=== PATIENT | female | born 1955 | race Caucasian/White ===

== ENCOUNTER 2022-03-04 23:04 | Inpatient (IN) | payer MEDICARE ==
[2022-03-05] MEDS ORDERED: Famotidine 20 MG TAB ONE (01:29)
[2022-03-05] MEDS ORDERED: Morphine 2 MG/ML VIAL SLOW IVP PRN (04:40)
[2022-03-05] MEDS ORDERED: Ondansetron PF 4 MG/2 ML Vial IVP PRN ×2 (04:41→15:40)
[2022-03-05] MEDS ORDERED: Ondansetron ORAL SOLN. 4 MG/5 ML UDCUP PO PRN (04:41)
[2022-03-05] MEDS: Cefepime 2 GM in Sodium Chloride 0.9% 100 ML IVPB SCH ×2 (07:00→18:07)
[2022-03-05] MEDS: metroNIDAZOLE 500 MG in Premix Bag 1 BAG IVPB SCH ×3 (07:00→21:13)
[2022-03-05] MEDS: Sodium Chloride 0.9% 1,000 ML IV SCH ×2 (07:00→14:34)
[2022-03-05 07:17] LABS: SARS-CoV-2 NAA Rapid Test Not Detected (NotDetected)
[2022-03-05] MEDS ORDERED: Iopamidol-370 76% 500 ML 1 ML ONE (11:18)
[2022-03-05] MEDS ORDERED: SUGAMMADEX SODIUM 200 MG/2 ML VIAL ONE (14:06)
[2022-03-05] MEDS ORDERED: fentaNYL Citrate/PF 100 MCG/2 ML SYRINGE ONE (14:06)
[2022-03-05] MEDS ORDERED: Famotidine/PF 20 mg/2ml Vial ONE (14:06)
[2022-03-05] MEDS ORDERED: Bupivacaine 0.25% HCL 30 ML VIAL ONE (14:07)
[2022-03-05] MEDS ORDERED: Lidocaine 1% w/Epinephrine 1:100K 20 ML VIAL ONE (14:07)
[2022-03-05] MEDS ORDERED: Iopamidol 15 ML ONE (14:07)
[2022-03-05] MEDS ORDERED: Levofloxacin 500 mg/D5W 100 ml Premix Bag ONE ×2 (14:15)
[2022-03-05] MEDS ORDERED: ePHEDrine 50 MG/ML VIAL ONE (14:20)
[2022-03-05] MEDS ORDERED: Dexamethasone 20 MG/5 ML VIAL ONE (14:20)
[2022-03-05] MEDS ORDERED: Lidocaine 1% PF 5 ML VIAL ONE (14:20)
[2022-03-05] MEDS ORDERED: Rocuronium Bromide 10 MG/ML (10ML VIAL) ONE (14:20)
[2022-03-05] MEDS ORDERED: Ketorolac Tromethamine 30 MG/ML VIAL ONE (14:20)
[2022-03-05] MEDS ORDERED: PROPOFOL 200 MG/20 ML VIAL ONE (14:20)
[2022-03-05] MEDS ORDERED: Metoclopramide HCl 10 MG/2 ML VIAL ONE (14:20)
[2022-03-05] MEDS ORDERED: Ondansetron PF 4 MG/2 ML Vial ONE (14:20)
[2022-03-05] MEDS ORDERED: Dextrose 5% in Water 1,000 ML IV PRN (15:40)
[2022-03-05] MEDS ORDERED: hydrALAZINE 20 MG/ML VIAL SLOW IVP PRN (15:40)
[2022-03-05] MEDS ORDERED: Dextrose 50% Abboject 50 ML SYRINGE SLOW IVP PRN (15:40)
[2022-03-05] MEDS ORDERED: Calcium Carbonate 500 MG ChewTAB PO PRN (15:40)
[2022-03-05] MEDS ORDERED: Mag-Al 1200 mg/1200 mg/30 ML UDCUP PO PRN (15:40)
[2022-03-05] MEDS ORDERED: Promethazine HCl 25 MG/ML VIAL IM PRN (15:40)
[2022-03-05] MEDS ORDERED: Fentanyl 100 MCG/2 ML VIAL ONE (15:55)
[2022-03-05] MEDS: Gabapentin 300 MG CAP PO SCH ×3 (15:58→20:13)
[2022-03-05] MEDS: Lactated Ringer's 1,000 ML IV SCH (17:05)
[2022-03-05] MEDS: Ketorolac Tromethamine 30 MG/ML VIAL IVP SCH (18:09)
[2022-03-05] MEDS: Famotidine 20 MG TAB PO SCH (20:09)
[2022-03-05] MEDS: Famotidine 40 MG/4 ML VIAL SLOW IVP SCH (20:10)
[2022-03-05] MEDS: Cyclobenzaprine 10 MG TAB PO PRN (21:25)
[2022-03-05 23:00] LABS: #Basophils 0.1 thou/uL (0.0-0.2); #Lymphocytes 0.5 thou/uL (1.20-3.40); #Monocytes 0.5 thou/uL (0.11-0.59); %Basophils 0.8 % (0.0-1.0); %Eosinophils 0.2 % (0.0-10.0); %Lymphocytes 4.2 % (21.0-51.0); %Neutrophils 90.8 % (42.0-75.0); Hemoglobin 9.2 g/dL (12.0-16.0); Mean Corpuscular HGB CONC 32.4 g/dL (32.0-36.0); Mean Corpuscular Hemoglobin 33.7 pg (27.0-31.0); Mean Platelet Volume 6.1 fL (7.4-10.4); Platelet Count 508 thou/uL (130-400); RBC Distribution Width 11.9 % (11.5-14.5); Red Blood Cell (RBC) Count 2.73 mill/uL (4.20-5.40); White Blood Cell (WBC) Count 12.1 thou/uL (4.8-10.8)
[2022-03-05 23:17] LABS: Lactic Acid 2.8 mmol/L (0.5-2.2)
[2022-03-05 23:22] LABS: ALT (SGPT) 200 U/L (8-55); AST (SGOT) 155 U/L (5-34); Albumin 3.1 g/dL (3.4-4.8); Alkaline Phosphatase 170 U/L (40-110); Anion Gap 16 mmol/L (10-20); BUN (Urea Nitrogen) 11 mg/dL (9.8-20.1); Bilirubin, Total 1.6 mg/dL (0.2-1.2); Calc. Creatinine Clearance 84 mL/min (70-130); Calcium 8.3 mg/dL (7.8-10.44); Carbon Dioxide 22 mmol/L (23-31); Chloride 104 mmol/L (98-107); Globulin 2.1 g/dL (2.4-3.5); Glucose 211 mg/dL (80-115); Potassium 3.5 mmol/L (3.5-5.1); Protein, Total 5.2 g/dL (5.8-8.1); Sodium 138 mmol/L (136-145)
[2022-03-06] MEDS ORDERED: fentaNYL Citrate/PF 100 MCG/2 ML SYRINGE ONE ×2 (00:11→02:32)
[2022-03-06] MEDS ORDERED: Lidocaine 1% w/Epinephrine 1:100K 20 ML VIAL ONE (00:28)
[2022-03-06] MEDS ORDERED: Bupivacaine 0.25% HCL 30 ML VIAL ONE (00:28)
[2022-03-06] MEDS ORDERED: Ketamine 50 MG/ML (10ML VIAL) ONE (00:35)
[2022-03-06] MEDS ORDERED: CEFAZOLIN 2 GM in Sodium Chloride 0.9% 100 ML IVPB SCH (00:45)
[2022-03-06] MEDS ORDERED: Ondansetron PF 4 MG/2 ML Vial ONE ×2 (00:51→02:55)
[2022-03-06] MEDS ORDERED: PROPOFOL 200 MG/20 ML VIAL ONE (00:51)
[2022-03-06] MEDS ORDERED: Glycopyrrolate 0.2 MG/ML 5 ML SYRINGE ONE (00:51)
[2022-03-06] MEDS ORDERED: Lidocaine 1% PF 5 ML VIAL ONE (00:51)
[2022-03-06] MEDS ORDERED: Rocuronium Bromide 10 MG/ML (10ML VIAL) ONE (00:51)
[2022-03-06] MEDS ORDERED: Calcium Chloride 1 GM/10 ML Abboject SYRINGE ONE (00:51)
[2022-03-06] MEDS ORDERED: PHENYLEPHRINE-NS 100 MCG/ML 10 ML SYRINGE ONE (00:51)
[2022-03-06] MEDS ORDERED: Dexamethasone 20 MG/5 ML VIAL ONE (00:51)
[2022-03-06] MEDS ORDERED: ePHEDrine 50 MG/ML VIAL ONE (00:51)
[2022-03-06] MEDS: Lactated Ringer's 1,000 ML IV SCH ×4 (01:13→16:10)
[2022-03-06] MEDS: Ketorolac Tromethamine 30 MG/ML VIAL IVP SCH ×4 (01:13→17:34)
[2022-03-06] MEDS: Sodium Chloride 0.9% 1,000 ML IV SCH ×2 (01:14→10:19)
[2022-03-06] MEDS ORDERED: Ondansetron HCl/PF 4 MG/2 ML Vial IVP PRN (02:16)
[2022-03-06] MEDS ORDERED: Promethazine HCl 25 MG/ML VIAL IM PRN (02:16)
[2022-03-06] MEDS ORDERED: Promethazine HCl 25 MG/ML VIAL IVPB PRN (02:16)
[2022-03-06 02:27] LABS: Hemoglobin 9.3 g/dL (12.0-16.0); Mean Corpuscular HGB CONC 33.5 g/dL (32.0-36.0); Mean Corpuscular Hemoglobin 33.9 pg (27.0-31.0); Mean Platelet Volume 6.3 fL (7.4-10.4); Platelet Count 407 thou/uL (130-400); RBC Distribution Width 12.9 % (11.5-14.5); Red Blood Cell (RBC) Count 2.74 mill/uL (4.20-5.40); White Blood Cell (WBC) Count 13.2 thou/uL (4.8-10.8)
[2022-03-06] MEDS: Cefepime 2 GM in Sodium Chloride 0.9% 100 ML IVPB SCH ×2 (05:11→16:14)
[2022-03-06] MEDS: metroNIDAZOLE 500 MG in Premix Bag 1 BAG IVPB SCH ×3 (05:12→21:58)
[2022-03-06 05:13] LABS: #Lymphocytes 0.5 thou/uL (1.20-3.40); #Monocytes 0.6 thou/uL (0.11-0.59); #Neutrophils 10.9 thou/uL (1.40-6.50); %Basophils 0.1 % (0.0-1.0); %Eosinophils 0.3 % (0.0-10.0); %Lymphocytes 3.9 % (21.0-51.0); %Neutrophils 90.7 % (42.0-75.0); Hemoglobin 9.6 g/dL (12.0-16.0); Mean Corpuscular Hemoglobin 33.3 pg (27.0-31.0); Mean Platelet Volume 7.1 fL (7.4-10.4); Platelet Count 402 thou/uL (130-400); RBC Distribution Width 13.3 % (11.5-14.5); Red Blood Cell (RBC) Count 2.89 mill/uL (4.20-5.40)
[2022-03-06 05:59] LABS: ALT (SGPT) 210 U/L (8-55); AST (SGOT) 200 U/L (5-34); Albumin 3.1 g/dL (3.4-4.8); Alkaline Phosphatase 151 U/L (40-110); Anion Gap 17 mmol/L (10-20); BUN (Urea Nitrogen) 11 mg/dL (9.8-20.1); Bilirubin, Total 3.5 mg/dL (0.2-1.2); Calc. Creatinine Clearance 87 mL/min (70-130); Calcium 8.1 mg/dL (7.8-10.44); Carbon Dioxide 19 mmol/L (23-31); Chloride 106 mmol/L (98-107); Globulin 2.5 g/dL (2.4-3.5); Glucose 197 mg/dL (80-115); Lipase 12 U/L (8-78); Potassium 4.3 mmol/L (3.5-5.1); Protein, Total 5.6 g/dL (5.8-8.1); Sodium 138 mmol/L (136-145)
[2022-03-06] MEDS ORDERED: Enoxaparin Sodium 40 MG/0.4 ML SYRINGE SC SCH (09:00)
[2022-03-06] MEDS ORDERED: Pantoprazole 40 MG VIAL IVP SCH ×2 (09:00→13:30)
[2022-03-06] MEDS: Famotidine 20 MG TAB PO SCH (09:10)
[2022-03-06] MEDS: Gabapentin 300 MG CAP PO SCH ×3 (09:10→21:58)
[2022-03-06] MEDS: Famotidine 40 MG/4 ML VIAL SLOW IVP SCH (09:59)
[2022-03-06] MEDS: Morphine 2 MG/ML VIAL SLOW IVP PRN ×2 (10:40→16:13)
[2022-03-06 12:46] LABS: Hemoglobin 8.5 g/dL (12.0-16.0)
[2022-03-06] MEDS: Cyclobenzaprine 10 MG TAB PO PRN (13:51)
[2022-03-06 18:26] LABS: Hemoglobin 7.3 g/dL (12.0-16.0)
[2022-03-07 00:16] LABS: Hemoglobin 6.7 g/dL (12.0-16.0)
[2022-03-07] MEDS: Ketorolac Tromethamine 30 MG/ML VIAL IVP SCH ×2 (00:38→06:29)
[2022-03-07] MEDS: Lactated Ringer's 1,000 ML IV SCH ×3 (00:39→17:48)
[2022-03-07] MEDS: Acetaminophen 325 MG TAB PO PRN ×2 (01:06→21:22)
[2022-03-07 04:14] LABS: #Eosinphils 0.1 thou/uL (0.0-0.7); #Lymphocytes 1.4 thou/uL (1.20-3.40); #Monocytes 0.9 thou/uL (0.11-0.59); #Neutrophils 5.4 thou/uL (1.40-6.50); %Basophils 0.4 % (0.0-1.0); %Eosinophils 1.2 % (0.0-10.0); %Lymphocytes 18.1 % (21.0-51.0); %Monocytes 11.5 % (0.0-10.0); %Neutrophils 68.8 % (42.0-75.0); Hemoglobin 7.6 g/dL (12.0-16.0); Mean Corpuscular HGB CONC 34.2 g/dL (32.0-36.0); Mean Corpuscular Hemoglobin 34.1 pg (27.0-31.0); Mean Corpuscular Volume 99.6 fL (78.0-98.0); Mean Platelet Volume 6.2 fL (7.4-10.4); Platelet Count 263 thou/uL (130-400); RBC Distribution Width 13.5 % (11.5-14.5); Red Blood Cell (RBC) Count 2.24 mill/uL (4.20-5.40); White Blood Cell (WBC) Count 7.8 thou/uL (4.8-10.8)
[2022-03-07 04:31] LABS: Albumin 2.5 g/dL (3.4-4.8)
[2022-03-07 04:32] LABS: Chloride 110 mmol/L (98-107); Potassium 3.3 mmol/L (3.5-5.1); Sodium 139 mmol/L (136-145)
[2022-03-07 04:33] LABS: Glucose 125 mg/dL (80-115)
[2022-03-07 04:34] LABS: Globulin 1.8 g/dL (2.4-3.5); Protein, Total 4.3 g/dL (5.8-8.1)
[2022-03-07 04:35] LABS: Anion Gap 8 mmol/L (10-20); Bilirubin, Total 0.9 mg/dL (0.2-1.2); Carbon Dioxide 24 mmol/L (23-31)
[2022-03-07 04:36] LABS: Alkaline Phosphatase 120 U/L (40-110)
[2022-03-07 04:37] LABS: Calc. Creatinine Clearance 106 mL/min (70-130)
[2022-03-07] MEDS: Cefepime 2 GM in Sodium Chloride 0.9% 100 ML IVPB SCH ×2 (04:37→17:47)
[2022-03-07 04:38] LABS: AST (SGOT) 94 U/L (5-34)
[2022-03-07] MEDS: Morphine 2 MG/ML VIAL SLOW IVP PRN ×4 (04:38→17:51)
[2022-03-07 04:39] LABS: ALT (SGPT) 148 U/L (8-55); Magnesium 1.6 mg/dL (1.6-2.6)
[2022-03-07 04:40] LABS: Lipase 12 U/L (8-78)
[2022-03-07] MEDS: metroNIDAZOLE 500 MG in Premix Bag 1 BAG IVPB SCH ×3 (06:30→21:23)
[2022-03-07] MEDS ORDERED: Electrolyte Replacement Protocol 1 EACH FS SCH (06:41)
[2022-03-07 06:51] LABS: BUN (Urea Nitrogen) 10 mg/dL (9.8-20.1)
[2022-03-07] MEDS: Cyclobenzaprine 10 MG TAB PO PRN ×2 (07:45→20:20)
[2022-03-07] MEDS: Gabapentin 300 MG CAP PO SCH ×3 (07:46→20:16)
[2022-03-07] MEDS: Pantoprazole 40 MG VIAL IVP SCH (07:48)
[2022-03-07] MEDS ORDERED: Magnesium 2 GM/50 ML(in water) 2 GM in Premix Bag 1 BAG IVPB SCH (08:00)
[2022-03-07] MEDS ORDERED: Potassium Chloride 20 MEQ TAB PO SCH (08:00)
[2022-03-07 08:12] LABS: Hemoglobin 9.4 g/dL (12.0-16.0)
[2022-03-07 11:42] LABS: Hemoglobin 9.1 g/dL (12.0-16.0)
[2022-03-07 18:31] LABS: Hemoglobin 9.4 g/dL (12.0-16.0)
[2022-03-08] MEDS: Lactated Ringer's 1,000 ML IV SCH (01:27)
[2022-03-08] MEDS: Cefepime 2 GM in Sodium Chloride 0.9% 100 ML IVPB SCH ×2 (04:13→17:59)
[2022-03-08] MEDS: Acetaminophen 325 MG TAB PO PRN (04:29)
[2022-03-08] MEDS: Morphine 2 MG/ML VIAL SLOW IVP PRN ×3 (04:33→16:51)
[2022-03-08] MEDS: metroNIDAZOLE 500 MG in Premix Bag 1 BAG IVPB SCH ×3 (05:11→21:17)
[2022-03-08 06:04] LABS: ALT (SGPT) 138 U/L (8-55); AST (SGOT) 77 U/L (5-34); Albumin 2.7 g/dL (3.4-4.8); Alkaline Phosphatase 147 U/L (40-110); Anion Gap 9 mmol/L (10-20); BUN (Urea Nitrogen) 6 mg/dL (9.8-20.1); Calc. Creatinine Clearance 117 mL/min (70-130); Calcium 7.9 mg/dL (7.8-10.44); Carbon Dioxide 26 mmol/L (23-31); Chloride 107 mmol/L (98-107); Globulin 2.1 g/dL (2.4-3.5); Glucose 108 mg/dL (80-115); Potassium 3.7 mmol/L (3.5-5.1); Protein, Total 4.8 g/dL (5.8-8.1); Sodium 138 mmol/L (136-145)
[2022-03-08 07:15] LABS: #Eosinphils 0.3 thou/uL (0.0-0.7); #Lymphocytes 1.4 thou/uL (1.20-3.40); #Monocytes 0.8 thou/uL (0.11-0.59); #Neutrophils 6.5 thou/uL (1.40-6.50); %Basophils 0.5 % (0.0-1.0); %Lymphocytes 15.8 % (21.0-51.0); %Monocytes 9.2 % (0.0-10.0); %Neutrophils 71.5 % (42.0-75.0); Hemoglobin 9.4 g/dL (12.0-16.0); Mean Corpuscular HGB CONC 33.4 g/dL (32.0-36.0); Mean Corpuscular Hemoglobin 33.2 pg (27.0-31.0); Mean Corpuscular Volume 99.3 fL (78.0-98.0); Mean Platelet Volume 6.6 fL (7.4-10.4); Platelet Count 331 thou/uL (130-400); RBC Distribution Width 13.8 % (11.5-14.5); Red Blood Cell (RBC) Count 2.82 mill/uL (4.20-5.40); White Blood Cell (WBC) Count 9.1 thou/uL (4.8-10.8)
[2022-03-08] MEDS: Gabapentin 300 MG CAP PO SCH ×3 (08:23→21:16)
[2022-03-08] MEDS: Pantoprazole 40 MG VIAL IVP SCH (08:23)
[2022-03-08] MEDS ORDERED: Furosemide 20 MG/2 ML VIAL SLOW IVP SCH (09:15)
[2022-03-08 09:27] LABS: Magnesium 1.7 mg/dL (1.6-2.6)
[2022-03-08 09:30] LABS: Phosphorus 1.4 mg/dL (2.3-4.7)
[2022-03-08] MEDS ORDERED: Magnesium 2 GM/50 ML(in water) 2 GM in Premix Bag 1 BAG IVPB SCH (09:45)
[2022-03-08] MEDS: PHOS-NAK 1 PKT PACK PO SCH ×4 (09:45→21:17)
[2022-03-08] MEDS ORDERED: Heparin 10,000 UNITS/ 10 ML VIAL SLOW IVP SCH (12:45)
[2022-03-08 13:35] LABS: #Eosinphils 0.4 thou/uL (0.0-0.7); #Lymphocytes 1.5 thou/uL (1.20-3.40); #Neutrophils 9.2 thou/uL (1.40-6.50); %Basophils 0.2 % (0.0-1.0); %Eosinophils 3.3 % (0.0-10.0); %Lymphocytes 12.3 % (21.0-51.0); %Monocytes 8.5 % (0.0-10.0); %Neutrophils 75.8 % (42.0-75.0); MDiff Complete? YES; Mean Corpuscular HGB CONC 34.1 g/dL (32.0-36.0); Mean Corpuscular Volume 99.7 fL (78.0-98.0); Mean Platelet Volume 6.5 fL (7.4-10.4); Platelet Count 418 thou/uL (130-400); Platelet Morphology Comment Appears Increased; Polychromasia SLIGHT = 2-3 cells (100X) (0-2/hpf); RBC Distribution Width 14.2 % (11.5-14.5); Red Blood Cell (RBC) Count 3.24 mill/uL (4.20-5.40); White Blood Cell (WBC) Count 12.1 thou/uL (4.8-10.8)
[2022-03-08] MEDS: Heparin 25,000 units/D5W 500 ML IVPB SCH (17:21)
[2022-03-08 19:14] LABS: #Eosinphils 0.4 thou/uL (0.0-0.7); #Lymphocytes 1.6 thou/uL (1.20-3.40); #Neutrophils 8.2 thou/uL (1.40-6.50); %Basophils 0.4 % (0.0-1.0); %Eosinophils 3.4 % (0.0-10.0); %Lymphocytes 14.4 % (21.0-51.0); %Monocytes 8.5 % (0.0-10.0); %Neutrophils 73.3 % (42.0-75.0); Hemoglobin 10.2 g/dL (12.0-16.0); Mean Corpuscular HGB CONC 33.4 g/dL (32.0-36.0); Mean Corpuscular Hemoglobin 33.1 pg (27.0-31.0); Mean Corpuscular Volume 99.2 fL (78.0-98.0); Mean Platelet Volume 6.5 fL (7.4-10.4); Platelet Count 431 thou/uL (130-400); RBC Distribution Width 13.9 % (11.5-14.5); Red Blood Cell (RBC) Count 3.08 mill/uL (4.20-5.40); White Blood Cell (WBC) Count 11.2 thou/uL (4.8-10.8)
[2022-03-08] MEDS: Morphine 4 MG/ML VIAL SLOW IVP PRN (21:25)
[2022-03-09 00:41] LABS: #Eosinphils 0.1 thou/uL (0.0-0.7); #Lymphocytes 2.1 thou/uL (1.20-3.40); #Neutrophils 8.3 thou/uL (1.40-6.50); %Basophils 0.3 % (0.0-1.0); %Eosinophils 1.2 % (0.0-10.0); %Lymphocytes 17.7 % (21.0-51.0); %Monocytes 8.9 % (0.0-10.0); %Neutrophils 71.8 % (42.0-75.0); Hemoglobin 9.9 g/dL (12.0-16.0); Mean Corpuscular HGB CONC 32.4 g/dL (32.0-36.0); Mean Corpuscular Hemoglobin 32.4 pg (27.0-31.0); Mean Platelet Volume 6.7 fL (7.4-10.4); Platelet Count 413 thou/uL (130-400); RBC Distribution Width 14.1 % (11.5-14.5); Red Blood Cell (RBC) Count 3.05 mill/uL (4.20-5.40); White Blood Cell (WBC) Count 11.5 thou/uL (4.8-10.8)
[2022-03-09 05:14] LABS: PTT 121.1 sec (22.9-36.1)
[2022-03-09 05:16] LABS: Anion Gap 11 mmol/L (10-20); BUN (Urea Nitrogen) 5 mg/dL (9.8-20.1); Calc. Creatinine Clearance 122 mL/min (70-130); Calcium 7.8 mg/dL (7.8-10.44); Carbon Dioxide 29 mmol/L (23-31); Chloride 99 mmol/L (98-107); Glucose 138 mg/dL (80-115); Sodium 136 mmol/L (136-145)
[2022-03-09] MEDS: metroNIDAZOLE 500 MG in Premix Bag 1 BAG IVPB SCH ×3 (05:56→21:07)
[2022-03-09] MEDS: Cefepime 2 GM in Sodium Chloride 0.9% 100 ML IVPB SCH ×2 (06:01→17:30)
[2022-03-09] MEDS: Morphine 4 MG/ML VIAL SLOW IVP PRN ×3 (06:08→21:13)
[2022-03-09] MEDS ORDERED: Potassium Chloride 20 MEQ TAB PO SCH (08:00)
[2022-03-09 08:02] LABS: Hemoglobin 9.7 g/dL (12.0-16.0); Mean Corpuscular Hemoglobin 33.7 pg (27.0-31.0); Mean Corpuscular Volume 99.2 fL (78.0-98.0); Platelet Count 360 thou/uL (130-400); RBC Distribution Width 13.9 % (11.5-14.5); Red Blood Cell (RBC) Count 2.89 mill/uL (4.20-5.40)
[2022-03-09 08:30] LABS: Band 2 % (5-11); Eosinophils 1 % (0-10); Lymphocytes 20 % (21-51); MDiff Complete? YES; Monocytes 8 % (0-10); Myelocyte 1 % (0-0); Neutrophil 67 % (42-75); Platelet Morphology Comment Appears Adequate; Polychromasia SLIGHT = 2-3 cells (100X) (0-2/hpf)
[2022-03-09] MEDS: Gabapentin 300 MG CAP PO SCH ×3 (09:15→21:07)
[2022-03-09] MEDS: Pantoprazole 40 MG VIAL IVP SCH (09:16)
[2022-03-09 10:05] VITALS: BMI 31.8
[2022-03-09] MEDS: Heparin 10,000 UNITS/ 10 ML VIAL SLOW IVP SCH (13:33)
[2022-03-09] MEDS: Heparin 25,000 units/D5W 500 ML IVPB SCH (14:29)
[2022-03-09 19:24] LABS: PTT 118.9 sec (22.9-36.1)
[2022-03-09] MEDS: Cyclobenzaprine 10 MG TAB PO PRN (22:41)
[2022-03-10] MEDS: Cefepime 2 GM in Sodium Chloride 0.9% 100 ML IVPB SCH ×2 (06:16→17:48)
[2022-03-10] MEDS: metroNIDAZOLE 500 MG in Premix Bag 1 BAG IVPB SCH ×3 (06:48→22:00)
[2022-03-10] MEDS ORDERED: GUAIFENESIN SF SOLN 200 MG/10 ML UDCUP PO PRN (07:53)
[2022-03-10] MEDS ORDERED: Ondansetron ODT 4 MG TAB PO PRN (07:53)
[2022-03-10] MEDS ORDERED: Artificial Tear Sol 15 ML BOT EA EYE PRN (07:53)
[2022-03-10] MEDS ORDERED: Zolpidem Tartrate 5 MG TAB PO PRN (07:53)
[2022-03-10] MEDS ORDERED: Moisturizing Cream (Eucerin) 113 GM JAR TOP PRN (07:53)
[2022-03-10] MEDS ORDERED: Loperamide HCl 2 MG CAP PO PRN (07:53)
[2022-03-10] MEDS ORDERED: Loratadine 10 MG TAB PO PRN (07:53)
[2022-03-10] MEDS ORDERED: Senokot S 8.6-50 MG TAB PO PRN (07:53)
[2022-03-10] MEDS ORDERED: Cepastat Lozenges 1 LOZ PO PRN (07:53)
[2022-03-10] MEDS: Gabapentin 300 MG CAP PO SCH ×3 (09:37→21:59)
[2022-03-10] MEDS: Pantoprazole 40 MG VIAL IVP SCH (09:37)
[2022-03-10] MEDS: Morphine 2 MG/ML VIAL SLOW IVP PRN ×2 (09:39→18:37)
[2022-03-10] MEDS: Heparin 10,000 UNITS/ 10 ML VIAL SLOW IVP SCH (11:06)
[2022-03-10] MEDS: Heparin 25,000 units/D5W 500 ML IVPB SCH (11:06)
[2022-03-10 12:33] LABS: Hemoglobin 11.1 g/dL (12.0-16.0); Platelet Count 512 thou/uL (130-400)
[2022-03-10] MEDS: HYDROcodone/Acetaminophen 5/325 mg Tablet PO PRN ×2 (14:46→22:03)
[2022-03-10] MEDS: Cyclobenzaprine 10 MG TAB PO PRN (14:46)
[2022-03-10 19:32] LABS: Prothrombin Time 13.5 sec (12.0-14.7)
[2022-03-10 19:34] LABS: PTT 82.1 sec (22.9-36.1)
[2022-03-10] MEDS: Acetaminophen 325 MG TAB PO PRN (23:49)
[2022-03-11 04:27] LABS: #Basophils 0.1 thou/uL (0.0-0.2); #Eosinphils 0.4 thou/uL (0.0-0.7); #Lymphocytes 2.1 thou/uL (1.20-3.40); #Monocytes 1.4 thou/uL (0.11-0.59); #Neutrophils 9.8 thou/uL (1.40-6.50); %Basophils 0.4 % (0.0-1.0); %Eosinophils 2.7 % (0.0-10.0); %Lymphocytes 14.9 % (21.0-51.0); %Monocytes 10.3 % (0.0-10.0); %Neutrophils 71.7 % (42.0-75.0); Hemoglobin 9.9 g/dL (12.0-16.0); Mean Corpuscular HGB CONC 32.2 g/dL (32.0-36.0); Mean Corpuscular Hemoglobin 32.7 pg (27.0-31.0); Mean Platelet Volume 6.1 fL (7.4-10.4); Platelet Count 462 thou/uL (130-400); RBC Distribution Width 14.1 % (11.5-14.5); Red Blood Cell (RBC) Count 3.03 mill/uL (4.20-5.40); White Blood Cell (WBC) Count 13.7 thou/uL (4.8-10.8)
[2022-03-11 04:51] LABS: ALT (SGPT) 49 U/L (8-55); AST (SGOT) 12 U/L (5-34); Albumin 2.9 g/dL (3.4-4.8); Alkaline Phosphatase 92 U/L (40-110); Anion Gap 9 mmol/L (10-20); BUN (Urea Nitrogen) 6 mg/dL (9.8-20.1); Bilirubin, Total 0.6 mg/dL (0.2-1.2); Calc. Creatinine Clearance 117 mL/min (70-130); Calcium 8.4 mg/dL (7.8-10.44); Carbon Dioxide 29 mmol/L (23-31); Chloride 101 mmol/L (98-107); Globulin 2.4 g/dL (2.4-3.5); Glucose 137 mg/dL (80-115); Magnesium 1.7 mg/dL (1.6-2.6); Phosphorus 3.1 mg/dL (2.3-4.7); Potassium 3.4 mmol/L (3.5-5.1); Protein, Total 5.3 g/dL (5.8-8.1); Sodium 136 mmol/L (136-145)
[2022-03-11] MEDS: metroNIDAZOLE 500 MG in Premix Bag 1 BAG IVPB SCH ×3 (05:32→21:02)
[2022-03-11] MEDS: Cefepime 2 GM in Sodium Chloride 0.9% 100 ML IVPB SCH ×2 (05:32→17:59)
[2022-03-11] MEDS: Heparin 25,000 units/D5W 500 ML IVPB SCH ×2 (05:33→23:54)
[2022-03-11] MEDS ORDERED: Potassium Chloride 20 MEQ TAB PO SCH (08:00)
[2022-03-11] MEDS ORDERED: Magnesium 2 GM/50 ML(in water) 2 GM in Premix Bag 1 BAG IVPB SCH (08:00)
[2022-03-11] MEDS: HYDROcodone/Acetaminophen 5/325 mg Tablet PO PRN ×3 (09:19→23:27)
[2022-03-11] MEDS: Gabapentin 300 MG CAP PO SCH ×3 (09:19→21:01)
[2022-03-11] MEDS: Cyclobenzaprine 10 MG TAB PO PRN (09:19)
[2022-03-11] MEDS: Pantoprazole 40 MG VIAL IVP SCH (09:20)
[2022-03-11] MEDS: Morphine 2 MG/ML VIAL SLOW IVP PRN ×3 (14:20→23:27)
[2022-03-12 04:44] LABS: Hemoglobin 9.9 g/dL (12.0-16.0); Mean Corpuscular HGB CONC 33.2 g/dL (32.0-36.0); Mean Corpuscular Hemoglobin 33.7 pg (27.0-31.0); Mean Platelet Volume 6.3 fL (7.4-10.4); Platelet Count 489 thou/uL (130-400); RBC Distribution Width 13.7 % (11.5-14.5); Red Blood Cell (RBC) Count 2.94 mill/uL (4.20-5.40); White Blood Cell (WBC) Count 13.6 thou/uL (4.8-10.8)
[2022-03-12 04:54] LABS: Anion Gap 12 mmol/L (10-20); BUN (Urea Nitrogen) 6 mg/dL (9.8-20.1); Calc. Creatinine Clearance 116 mL/min (70-130); Calcium 8.6 mg/dL (7.8-10.44); Carbon Dioxide 25 mmol/L (23-31); Chloride 101 mmol/L (98-107); Glucose 132 mg/dL (80-115); Magnesium 1.9 mg/dL (1.6-2.6); Potassium 3.8 mmol/L (3.5-5.1); Sodium 134 mmol/L (136-145)
[2022-03-12 05:29] LABS: Band 7 % (5-11); Eosinophils 4 % (0-10); Lymphocytes 16 % (21-51); MDiff Complete? YES; Monocytes 4 % (0-10); Myelocyte 2 % (0-0); Neutrophil 67 % (42-75); Platelet Morphology Comment Appears Increased
[2022-03-12] MEDS: Cefepime 2 GM in Sodium Chloride 0.9% 100 ML IVPB SCH (05:35)
[2022-03-12] MEDS: HYDROcodone/Acetaminophen 5/325 mg Tablet PO PRN ×3 (06:20→20:35)
[2022-03-12] MEDS: metroNIDAZOLE 500 MG in Premix Bag 1 BAG IVPB SCH (06:21)
[2022-03-12] MEDS ORDERED: Magnesium 2 GM/50 ML(in water) 2 GM in Premix Bag 1 BAG IVPB SCH (08:00)
[2022-03-12] MEDS: Gabapentin 300 MG CAP PO SCH ×3 (08:22→20:33)
[2022-03-12] MEDS: Pantoprazole 40 MG VIAL IVP SCH (11:46)
[2022-03-12] MEDS ORDERED: Morphine 4 MG/ML VIAL SLOW IVP PRN (13:47)
[2022-03-12] MEDS: metroNIDAZOLE 500 MG TAB PO SCH ×2 (15:24→20:33)
[2022-03-12] MEDS: Ciprofloxacin 500 MG TAB PO SCH (20:33)
[2022-03-12] MEDS: Apixaban 5 MG TAB PO SCH (20:35)
[2022-03-13 05:28] LABS: #Eosinphils 0.3 thou/uL (0.0-0.7); #Lymphocytes 1.1 thou/uL (1.20-3.40); #Monocytes 1.3 thou/uL (0.11-0.59); #Neutrophils 8.9 thou/uL (1.40-6.50); %Basophils 0.2 % (0.0-1.0); %Eosinophils 2.3 % (0.0-10.0); %Lymphocytes 9.5 % (21.0-51.0); %Monocytes 11.2 % (0.0-10.0); %Neutrophils 76.9 % (42.0-75.0); Hemoglobin 10.1 g/dL (12.0-16.0); Mean Corpuscular HGB CONC 31.9 g/dL (32.0-36.0); Mean Corpuscular Hemoglobin 32.7 pg (27.0-31.0); Mean Platelet Volume 6.1 fL (7.4-10.4); Platelet Count 541 thou/uL (130-400); RBC Distribution Width 13.6 % (11.5-14.5); Red Blood Cell (RBC) Count 3.08 mill/uL (4.20-5.40); White Blood Cell (WBC) Count 11.5 thou/uL (4.8-10.8)
[2022-03-13 05:47] LABS: ALT (SGPT) 31 U/L (8-55); AST (SGOT) 15 U/L (5-34); Albumin 3.2 g/dL (3.4-4.8); Alkaline Phosphatase 89 U/L (40-110); Anion Gap 13 mmol/L (10-20); BUN (Urea Nitrogen) 6 mg/dL (9.8-20.1); Bilirubin, Total 0.7 mg/dL (0.2-1.2); Calc. Creatinine Clearance 112 mL/min (70-130); Calcium 8.9 mg/dL (7.8-10.44); Carbon Dioxide 24 mmol/L (23-31); Chloride 101 mmol/L (98-107); Globulin 2.9 g/dL (2.4-3.5); Glucose 140 mg/dL (80-115); Potassium 4.2 mmol/L (3.5-5.1); Protein, Total 6.1 g/dL (5.8-8.1); Sodium 134 mmol/L (136-145)
[2022-03-13] MEDS: Ciprofloxacin 500 MG TAB PO SCH ×2 (06:10→20:13)
[2022-03-13] MEDS: Gabapentin 300 MG CAP PO SCH ×3 (08:29→20:13)
[2022-03-13] MEDS: metroNIDAZOLE 500 MG TAB PO SCH ×3 (08:29→20:13)
[2022-03-13] MEDS: Apixaban 5 MG TAB PO SCH ×2 (08:30→20:14)
[2022-03-13] MEDS: HYDROcodone/Acetaminophen 5/325 mg Tablet PO PRN ×2 (08:47→20:13)
[2022-03-14] MEDS: Ciprofloxacin 500 MG TAB PO SCH (05:49)
[2022-03-14] MEDS: Acetaminophen 325 MG TAB PO PRN (06:07)
[2022-03-14] MEDS: HYDROcodone/Acetaminophen 5/325 mg Tablet PO PRN (08:59)
[2022-03-14] MEDS: metroNIDAZOLE 500 MG TAB PO SCH (08:59)
[2022-03-14] MEDS: Apixaban 5 MG TAB PO SCH (09:00)
[2022-03-14] MEDS: Gabapentin 300 MG CAP PO SCH (09:01)
[2022-03-14 15:23] VITALS: BP 123/76; TEMP 98
== END 2022-03-14 13:20 | disposition home or self-care (01) | DRG 417 ==
LOC: ERS 23:04 → SURG A 03-05 02:29 → OBSVTOIN 03-05 15:40 → CCU 03-05 23:25 → SURG A 03-07 15:50 → 2NO 03-08 17:08 → SURG A 03-12 17:47
PROVIDERS: ADMIT Student in an Organized Health Care Education/Training Program; ATTEND Internal Medicine
PROC: 0FT44ZZ Resection of Gallbladder, Percutaneous Endoscopic Approach (ICD-10-PCS; 2022-03-05)
PROC: BF131ZZ Fluoroscopy of Gallbladder and Bile Ducts using Low Osmolar Contrast (ICD-10-PCS; 2022-03-05)
PROC: 0W3P4ZZ Control Bleeding in Gastrointestinal Tract, Percutaneous Endoscopic Approach (ICD-10-PCS; principal; 2022-03-06)
PROC: 0D9630Z Drainage of Stomach with Drainage Device, Percutaneous Approach (ICD-10-PCS; 2022-03-06)
PROC: 30233N1 Transfusion of Nonautologous Red Blood Cells into Peripheral Vein, Percutaneous Approach (ICD-10-PCS; 2022-03-07)
DX: K80.00 Calculus of gallbladder with acute cholecystitis without obstruction (principal); K66.1 Hemoperitoneum; K91.870 Postprocedural hematoma of a digestive system organ or structure following a digestive system procedure; D62 Acute posthemorrhagic anemia; I82.413 Acute embolism and thrombosis of femoral vein, bilateral; G89.29 Other chronic pain; I95.9 Hypotension, unspecified; Y83.8 Other surgical procedures as the cause of abnormal reaction of the patient, or of later complication, without mention of misadventure at the time of the procedure; M54.9 Dorsalgia, unspecified; E87.6 Hypokalemia; E83.42 Hypomagnesemia; R06.00 Dyspnea, unspecified; Z20.822 Contact with and (suspected) exposure to COVID-19; Z88.8 Allergy status to other drugs, medicaments and biological substances; Z88.0 Allergy status to penicillin; Z79.899 Other long term (current) drug therapy; Z90.710 Acquired absence of both cervix and uterus; Z85.41 Personal history of malignant neoplasm of cervix uteri; Z85.43 Personal history of malignant neoplasm of ovary; Z90.49 Acquired absence of other specified parts of digestive tract
CPT/HCPCS: 36415; 36430; 47532; 71045; 74177; 76705; 80048; 80053; 83605; 83690; 83735; 84100; 85014; 85018; 85025; 85049; 85610; 85730; 86850; 86900; 86901; 87040; 88304; 93005; 93010; 93970; 96374; 96375; C1713; C9113; G0378; J0360; J0692; J1100; J1644; J1885; J1940; J1956; J2270; J2405; J2704; J2765; J3010; J3475; J3490; J7050; J7120; P9016; Q9967; S0020; S0028; U0002; U0003; U0005

== ENCOUNTER 2022-03-19 02:45 | Inpatient (IN) | payer MEDICARE ==
[2022-03-19] MEDS ORDERED: metroNIDAZOLE 500 MG/100 ML BAG ONE (04:05)
[2022-03-19] MEDS ORDERED: Ondansetron PF 4 MG/2 ML Vial IVP PRN (04:30)
[2022-03-19] MEDS ORDERED: Gabapentin 100 MG CAP PO SCH (04:30)
[2022-03-19] MEDS ORDERED: Acetaminophen 325 MG TAB PO PRN (04:30)
[2022-03-19] MEDS ORDERED: Ondansetron ODT 4 MG TAB SL PRN (04:30)
[2022-03-19] MEDS ORDERED: Acetaminophen 650 MG Suppository PR PRN (05:33)
[2022-03-19] MEDS ORDERED: Morphine 4 MG/ML VIAL SLOW IVP PRN (05:33)
[2022-03-19 06:10] VITALS: BMI 30.3
[2022-03-19] MEDS ORDERED: Heparin 25,000 units/D5W 500 ML IVPB SCH (06:45)
[2022-03-19 07:09] LABS: #Eosinphils 0.1 thou/uL (0.0-0.7); #Lymphocytes 0.9 thou/uL (1.20-3.40); #Neutrophils 10.7 thou/uL (1.40-6.50); %Basophils 0.2 % (0.0-1.0); %Eosinophils 0.7 % (0.0-10.0); %Lymphocytes 7.3 % (21.0-51.0); %Monocytes 7.9 % (0.0-10.0); Hemoglobin 11.4 g/dL (12.0-16.0); Mean Corpuscular HGB CONC 30.7 g/dL (32.0-36.0); Mean Corpuscular Hemoglobin 31.7 pg (27.0-31.0); Mean Platelet Volume 5.5 fL (7.4-10.4); Platelet Count 705 thou/uL (130-400); RBC Distribution Width 13.3 % (11.5-14.5); Red Blood Cell (RBC) Count 3.61 mill/uL (4.20-5.40); White Blood Cell (WBC) Count 12.7 thou/uL (4.8-10.8)
[2022-03-19 07:10] LABS: Hemoglobin 11.5 g/dL (12.0-16.0); Platelet Count 681 thou/uL (130-400)
[2022-03-19 07:29] LABS: Lactic Acid 1.4 mmol/L (0.5-2.2)
[2022-03-19 07:33] LABS: Anion Gap 14 mmol/L (10-20); BUN (Urea Nitrogen) 6 mg/dL (9.8-20.1); Calc. Creatinine Clearance 99 mL/min (70-130); Calcium 9.1 mg/dL (7.8-10.44); Carbon Dioxide 24 mmol/L (23-31); Chloride 102 mmol/L (98-107); Glucose 170 mg/dL (80-115); Sodium 136 mmol/L (136-145)
[2022-03-19] MEDS: Sodium Chloride 0.9% 1,000 ML IV SCH ×2 (08:01→17:34)
[2022-03-19] MEDS ORDERED: HYDROmorphone 0.5 MG/0.5 ML SYRINGE SLOW IVP SCH ×2 (09:00→13:00)
[2022-03-19 12:56] LABS: Hemoglobin 11.4 g/dL (12.0-16.0)
[2022-03-19] MEDS: Morphine 4 MG/ML VIAL SLOW IVP PRN ×3 (13:47→20:14)
[2022-03-19 16:07] LABS: ALT (SGPT) 13 U/L (8-55); AST (SGOT) 14 U/L (5-34); Albumin 3.5 g/dL (3.4-4.8); Alkaline Phosphatase 78 U/L (40-110); Bilirubin, Direct 0.3 mg/dL (0.1-0.3); Bilirubin, Total 0.4 mg/dL (0.2-1.2); Protein, Total 6.9 g/dL (5.8-8.1)
[2022-03-19] MEDS: metroNIDAZOLE 500 MG in Premix Bag 1 BAG IVPB SCH (17:34)
[2022-03-19 18:23] LABS: Bacteria/HPF 1+ HPF (None Seen); Bilirubin Negative (Negative); Blood, Urine Negative (Negative); Clarity Clear (Clear); Glucose, Urine (Dipstick) Normal (Negative); Ketone, Urine Negative (Negative); Leukocyte Negative Leu/uL (Negative); Nitrite Negative (Negative); Protein, Urine (Dipstick) Negative (Neg-Trace); RBC/HPF 0-3 HPF (0-3); Specific Gravity, Urine 1.013 (1.002-1.036); Squamous Epithelial 0-3 HPF (0-3); Urobilinogen Normal mg/dL (Less than 2); WBC/HPF 0-3 HPF (0-3); pH, Urine 6.5 (5.0-9.0)
[2022-03-19] MEDS ORDERED: Zolpidem Tartrate 5 MG TAB PO SCH (20:45)
[2022-03-20] MEDS: Morphine 4 MG/ML VIAL SLOW IVP PRN ×5 (00:10→20:52)
[2022-03-20] MEDS: metroNIDAZOLE 500 MG in Premix Bag 1 BAG IVPB SCH ×3 (00:11→16:00)
[2022-03-20] MEDS: Sodium Chloride 0.9% 1,000 ML IV SCH ×2 (00:14→10:19)
[2022-03-20] MEDS ORDERED: Ketorolac Tromethamine 30 MG/ML VIAL IVP SCH (02:00)
[2022-03-20 05:00] LABS: #Eosinphils 0.2 thou/uL (0.0-0.7); #Lymphocytes 1.3 thou/uL (1.20-3.40); #Neutrophils 9.2 thou/uL (1.40-6.50); %Basophils 0.4 % (0.0-1.0); %Eosinophils 1.9 % (0.0-10.0); %Lymphocytes 11.2 % (21.0-51.0); %Monocytes 8.7 % (0.0-10.0); %Neutrophils 77.9 % (42.0-75.0); Hemoglobin 11.5 g/dL (12.0-16.0); Mean Corpuscular HGB CONC 32.2 g/dL (32.0-36.0); Mean Corpuscular Hemoglobin 32.9 pg (27.0-31.0); Mean Platelet Volume 5.6 fL (7.4-10.4); Platelet Count 574 thou/uL (130-400); Red Blood Cell (RBC) Count 3.51 mill/uL (4.20-5.40); White Blood Cell (WBC) Count 11.7 thou/uL (4.8-10.8)
[2022-03-20 05:20] LABS: ALT (SGPT) 12 U/L (8-55); AST (SGOT) 13 U/L (5-34); Albumin 3.3 g/dL (3.4-4.8); Alkaline Phosphatase 74 U/L (40-110); Anion Gap 14 mmol/L (10-20); BUN (Urea Nitrogen) Less than 4 mg/dL (9.8-20.1); Bilirubin, Total 0.5 mg/dL (0.2-1.2); Calc. Creatinine Clearance 106 mL/min (70-130); Calcium 8.9 mg/dL (7.8-10.44); Carbon Dioxide 23 mmol/L (23-31); Chloride 101 mmol/L (98-107); Globulin 3.2 g/dL (2.4-3.5); Glucose 125 mg/dL (80-115); Potassium 3.7 mmol/L (3.5-5.1); Protein, Total 6.5 g/dL (5.8-8.1); Sodium 134 mmol/L (136-145)
[2022-03-20] MEDS ORDERED: HYDROcodone/Acetaminophen 7.5/325 mg Tablet PO PRN (09:10)
[2022-03-20] MEDS: Polyethylene Glycol 3350 17 GM Packet PO SCH (09:34)
[2022-03-20] MEDS: Acetaminophen 325 MG TAB PO PRN (09:35)
[2022-03-20] MEDS ORDERED: Apixaban 2.5 MG TAB PO SCH (09:45)
[2022-03-20] MEDS ORDERED: Apixaban 5 MG TAB PO SCH (10:00)
[2022-03-20] MEDS: HYDROcodone/Acetaminophen 7.5/325 mg Tablet PO PRN ×2 (10:19→16:45)
[2022-03-20] MEDS: Gabapentin 300 MG CAP PO SCH ×2 (15:40→20:52)
[2022-03-20] MEDS: Cyclobenzaprine 10 MG TAB PO SCH (20:53)
[2022-03-20] MEDS: Apixaban 5 MG TAB PO SCH (20:54)
[2022-03-21] MEDS: Sodium Chloride 0.9% 1,000 ML IV SCH ×3 (00:38→21:50)
[2022-03-21] MEDS: metroNIDAZOLE 500 MG in Premix Bag 1 BAG IVPB SCH ×2 (00:38→08:44)
[2022-03-21] MEDS: Morphine 4 MG/ML VIAL SLOW IVP PRN ×4 (00:38→21:09)
[2022-03-21] MEDS: HYDROcodone/Acetaminophen 7.5/325 mg Tablet PO PRN ×3 (02:33→15:53)
[2022-03-21 04:53] LABS: #Eosinphils 0.3 thou/uL (0.0-0.7); #Lymphocytes 1.7 thou/uL (1.20-3.40); #Monocytes 0.9 thou/uL (0.11-0.59); #Neutrophils 5.4 thou/uL (1.40-6.50); %Basophils 0.2 % (0.0-1.0); %Eosinophils 4.2 % (0.0-10.0); %Lymphocytes 20.4 % (21.0-51.0); %Monocytes 10.6 % (0.0-10.0); %Neutrophils 64.7 % (42.0-75.0); Hemoglobin 11.2 g/dL (12.0-16.0); Mean Corpuscular HGB CONC 30.9 g/dL (32.0-36.0); Mean Corpuscular Hemoglobin 31.9 pg (27.0-31.0); Mean Platelet Volume 5.7 fL (7.4-10.4); Platelet Count 613 thou/uL (130-400); RBC Distribution Width 12.9 % (11.5-14.5); Red Blood Cell (RBC) Count 3.51 mill/uL (4.20-5.40); White Blood Cell (WBC) Count 8.3 thou/uL (4.8-10.8)
[2022-03-21 05:07] LABS: Anion Gap 14 mmol/L (10-20); BUN (Urea Nitrogen) 4 mg/dL (9.8-20.1); Calc. Creatinine Clearance 106 mL/min (70-130); Carbon Dioxide 25 mmol/L (23-31); Chloride 104 mmol/L (98-107); Glucose 85 mg/dL (80-115); Potassium 3.9 mmol/L (3.5-5.1); Sodium 139 mmol/L (136-145)
[2022-03-21] MEDS: Gabapentin 300 MG CAP PO SCH ×3 (07:57→21:08)
[2022-03-21] MEDS: Polyethylene Glycol 3350 17 GM Packet PO SCH (07:57)
[2022-03-21] MEDS: Apixaban 5 MG TAB PO SCH ×2 (07:57→21:08)
[2022-03-21] MEDS ORDERED: Docusate 100 MG CAP PO SCH (09:15)
[2022-03-21] MEDS: Acetaminophen 325 MG TAB PO PRN (09:49)
[2022-03-21] MEDS ORDERED: chlorproMAZINE HCl 25 MG in Sodium Chloride 0.9% 50 ML IVPB SCH (11:00)
[2022-03-21] MEDS: Docusate 100 MG CAP PO SCH (21:08)
[2022-03-21] MEDS: Cyclobenzaprine 10 MG TAB PO SCH (21:08)
[2022-03-22] MEDS: HYDROcodone/Acetaminophen 7.5/325 mg Tablet PO PRN ×2 (00:30→08:40)
[2022-03-22 04:47] LABS: #Eosinphils 0.2 thou/uL (0.0-0.7); #Lymphocytes 1.7 thou/uL (1.20-3.40); #Monocytes 0.8 thou/uL (0.11-0.59); #Neutrophils 3.8 thou/uL (1.40-6.50); %Basophils 0.6 % (0.0-1.0); %Eosinophils 2.9 % (0.0-10.0); %Lymphocytes 26.6 % (21.0-51.0); %Monocytes 12.3 % (0.0-10.0); %Neutrophils 57.7 % (42.0-75.0); Hemoglobin 10.1 g/dL (12.0-16.0); Mean Corpuscular HGB CONC 31.3 g/dL (32.0-36.0); Mean Platelet Volume 5.8 fL (7.4-10.4); Platelet Count 524 thou/uL (130-400); RBC Distribution Width 12.9 % (11.5-14.5); Red Blood Cell (RBC) Count 3.16 mill/uL (4.20-5.40); White Blood Cell (WBC) Count 6.5 thou/uL (4.8-10.8)
[2022-03-22 05:06] LABS: Anion Gap 13 mmol/L (10-20); BUN (Urea Nitrogen) 4 mg/dL (9.8-20.1); Calc. Creatinine Clearance 110 mL/min (70-130); Calcium 8.5 mg/dL (7.8-10.44); Carbon Dioxide 25 mmol/L (23-31); Chloride 105 mmol/L (98-107); Glucose 107 mg/dL (80-115); Potassium 3.6 mmol/L (3.5-5.1); Sodium 139 mmol/L (136-145)
[2022-03-22] MEDS: Sodium Chloride 0.9% 1,000 ML IV SCH (08:33)
[2022-03-22] MEDS: Gabapentin 300 MG CAP PO SCH ×2 (08:34→14:15)
[2022-03-22] MEDS: Apixaban 5 MG TAB PO SCH (08:36)
[2022-03-22] MEDS: Docusate 100 MG CAP PO SCH (08:36)
[2022-03-22] MEDS: Morphine 4 MG/ML VIAL SLOW IVP PRN (11:44)
[2022-03-22 16:07] VITALS: BP 127/60; TEMP 97.6
== END 2022-03-22 16:45 | disposition home or self-care (01) | DRG 919 ==
LOC: ERS 02:45 → 2NO 04:25
PROVIDERS: ADMIT Student in an Organized Health Care Education/Training Program; ATTEND Internal Medicine
DX: K91.840 Postprocedural hemorrhage of a digestive system organ or structure following a digestive system procedure (principal); K66.1 Hemoperitoneum; E87.2 Acidosis; E87.1 Hypo-osmolality and hyponatremia; G89.29 Other chronic pain; R73.9 Hyperglycemia, unspecified; E88.09 Other disorders of plasma-protein metabolism, not elsewhere classified; Z20.822 Contact with and (suspected) exposure to COVID-19; Y83.8 Other surgical procedures as the cause of abnormal reaction of the patient, or of later complication, without mention of misadventure at the time of the procedure; Z90.710 Acquired absence of both cervix and uterus; Z88.0 Allergy status to penicillin; Z88.8 Allergy status to other drugs, medicaments and biological substances; Z79.899 Other long term (current) drug therapy; Z79.01 Long term (current) use of anticoagulants; Z90.49 Acquired absence of other specified parts of digestive tract
CPT/HCPCS: 36415; 74176; 80048; 80053; 80076; 82010; 82150; 83605; 85014; 85018; 85025; 85049; 85730; J1170; J1885; J1956; J2270; J3230; J7050; Q0162; U0003; U0005

== ENCOUNTER 2022-03-30 11:08 | Inpatient (IN) | payer MEDICARE ==
[2022-03-30 12:24] LABS: #Basophils 0.1 thou/uL (0.0-0.2); #Eosinphils 0.2 thou/uL (0.0-0.7); #Lymphocytes 1.6 thou/uL (1.20-3.40); #Monocytes 0.7 thou/uL (0.11-0.59); #Neutrophils 3.1 thou/uL (1.40-6.50); %Eosinophils 3.5 % (0.0-10.0); %Lymphocytes 27.6 % (21.0-51.0); %Monocytes 13.1 % (0.0-10.0); %Neutrophils 54.7 % (42.0-75.0); Hemoglobin 13.8 g/dL (12.0-16.0); Mean Corpuscular HGB CONC 33.9 g/dL (32.0-36.0); Mean Corpuscular Hemoglobin 33.7 pg (27.0-31.0); Mean Corpuscular Volume 99.5 fL (78.0-98.0); Mean Platelet Volume 6.5 fL (7.4-10.4); Platelet Count 332 thou/uL (130-400); RBC Distribution Width 12.7 % (11.5-14.5); Red Blood Cell (RBC) Count 4.11 mill/uL (4.20-5.40); White Blood Cell (WBC) Count 5.6 thou/uL (4.8-10.8)
[2022-03-30 12:42] LABS: MDiff Complete? YES; Macrocytosis SLIGHT = 6-15 cells (100X) (0-5/hpf); Platelet Morphology Comment Appears Adequate
[2022-03-30 12:55] LABS: ALT (SGPT) 25 U/L (8-55); AST (SGOT) 40 U/L (5-34); Albumin 3.8 g/dL (3.4-4.8); Alkaline Phosphatase 76 U/L (40-110); Anion Gap 17 mmol/L (10-20); BUN (Urea Nitrogen) 16 mg/dL (9.8-20.1); Bilirubin, Total 0.4 mg/dL (0.2-1.2); Calc. Creatinine Clearance 0 mL/min (70-130); Carbon Dioxide 23 mmol/L (23-31); Chloride 103 mmol/L (98-107); Estimated GFR 96; Globulin 4.4 g/dL (2.4-3.5); Glucose 100 mg/dL (80-115); Lipase 13 U/L (8-78); Potassium 4.4 mmol/L (3.5-5.1); Protein, Total 8.2 g/dL (5.8-8.1); Sodium 139 mmol/L (136-145)
[2022-03-30] MEDS ORDERED: hydrALAZINE 20 MG/ML VIAL SLOW IVP PRN (16:24)
[2022-03-30] MEDS ORDERED: Aspirin 81 mg Enteric Coated Tablet PO SCH (17:00)
[2022-03-30] MEDS ORDERED: Aspirin Chewable 81 MG TAB ONE (17:15)
[2022-03-30 17:23] LABS: Hemoglobin A1c 5.9 % (4.0-6.0)
[2022-03-30 17:55] LABS: Free T4 (Free Thyroxine) 1.07 ng/dL (0.70-1.48)
[2022-03-30 17:56] LABS: HIV (1/2) Antibody/Antigen Non-Reactive (NonReactive)
[2022-03-30] MEDS: Cyclobenzaprine 10 MG TAB PO SCH (21:04)
[2022-03-30] MEDS: Famotidine 20 MG TAB PO SCH ×2 (21:04→21:07)
[2022-03-30] MEDS ORDERED: Cyclobenzaprine 10 MG TAB ONE (21:04)
[2022-03-30] MEDS ORDERED: Famotidine 20 MG TAB ONE (21:04)
[2022-03-30] MEDS ORDERED: Acetaminophen/Codeine 30-300mg Tablet ONE (21:18)
[2022-03-30] MEDS: Apixaban 5 MG TAB PO SCH (21:23)
[2022-03-30] MEDS: Atorvastatin Calcium 40 MG TAB PO SCH (21:23)
[2022-03-30] MEDS: Acetaminophen/Codeine 30-300mg Tablet PO PRN (21:23)
[2022-03-30] MEDS: Gabapentin 300 MG CAP PO SCH (21:23)
[2022-03-31] MEDS: Acetaminophen 325 MG TAB PO PRN ×4 (03:29→20:21)
[2022-03-31] MEDS: Benzonatate 100 MG CAP PO PRN ×2 (03:29→22:46)
[2022-03-31 05:45] LABS: #Eosinphils 0.3 thou/uL (0.0-0.7); #Lymphocytes 1.6 thou/uL (1.20-3.40); #Monocytes 0.6 thou/uL (0.11-0.59); #Neutrophils 2.2 thou/uL (1.40-6.50); %Basophils 0.3 % (0.0-1.0); %Eosinophils 6.3 % (0.0-10.0); %Lymphocytes 33.5 % (21.0-51.0); %Monocytes 13.2 % (0.0-10.0); %Neutrophils 46.7 % (42.0-75.0); Hemoglobin 11.1 g/dL (12.0-16.0); Mean Corpuscular Hemoglobin 32.1 pg (27.0-31.0); Platelet Count 396 thou/uL (130-400); RBC Distribution Width 12.7 % (11.5-14.5); Red Blood Cell (RBC) Count 3.46 mill/uL (4.20-5.40); White Blood Cell (WBC) Count 4.8 thou/uL (4.8-10.8)
[2022-03-31 06:03] LABS: Anion Gap 14 mmol/L (10-20); BUN (Urea Nitrogen) 15 mg/dL (9.8-20.1); Calc. Creatinine Clearance 89 mL/min (70-130); Calcium 9.3 mg/dL (7.8-10.44); Carbon Dioxide 30 mmol/L (23-31); Chloride 101 mmol/L (98-107); Cholesterol 150 mg/dl (< 200 Desired); Estimated GFR 96; Glucose 146 mg/dL (80-115); HDL Cholesterol 30 mg/dL (>60 Neg Risk); LDL Cholesterol, Calculated 79 mg/dL; Potassium 4.5 mmol/L (3.5-5.1); Sodium 140 mmol/L (136-145); Triglycerides 206 mg/dL (Less than 150)
[2022-03-31] MEDS ORDERED: ISOVUE-370 76%-LOCM 1 ML ONE (08:00)
[2022-03-31] MEDS: Apixaban 5 MG TAB PO SCH ×2 (08:59→20:21)
[2022-03-31] MEDS: Gabapentin 300 MG CAP PO SCH ×3 (09:00→20:21)
[2022-03-31] MEDS: Aspirin 81 mg Enteric Coated Tablet PO SCH (09:02)
[2022-03-31] MEDS: Famotidine 20 MG TAB PO SCH ×2 (09:02→20:22)
[2022-03-31] MEDS: Acetaminophen/Codeine 30-300mg Tablet PO PRN ×2 (09:10→15:46)
[2022-03-31 14:48] VITALS: BMI 29.5
[2022-03-31] MEDS: Atorvastatin Calcium 40 MG TAB PO SCH (20:21)
[2022-03-31] MEDS: Cyclobenzaprine 10 MG TAB PO SCH (20:21)
[2022-04-01] MEDS: Famotidine 20 MG TAB PO SCH ×3 (00:06→13:31)
[2022-04-01] MEDS: Acetaminophen/Codeine 30-300mg Tablet PO PRN ×2 (03:26→13:29)
[2022-04-01 04:46] LABS: #Eosinphils 0.3 thou/uL (0.0-0.7); #Lymphocytes 1.7 thou/uL (1.20-3.40); #Monocytes 0.6 thou/uL (0.11-0.59); #Neutrophils 2.2 thou/uL (1.40-6.50); %Basophils 0.2 % (0.0-1.0); %Eosinophils 6.7 % (0.0-10.0); %Monocytes 11.6 % (0.0-10.0); %Neutrophils 46.6 % (42.0-75.0); Hemoglobin 11.4 g/dL (12.0-16.0); Mean Corpuscular HGB CONC 31.6 g/dL (32.0-36.0); Mean Corpuscular Hemoglobin 31.6 pg (27.0-31.0); Mean Platelet Volume 6.1 fL (7.4-10.4); Platelet Count 444 thou/uL (130-400); RBC Distribution Width 12.6 % (11.5-14.5); Red Blood Cell (RBC) Count 3.62 mill/uL (4.20-5.40); White Blood Cell (WBC) Count 4.8 thou/uL (4.8-10.8)
[2022-04-01 05:17] LABS: Anion Gap 13 mmol/L (10-20); BUN (Urea Nitrogen) 9 mg/dL (9.8-20.1); Calc. Creatinine Clearance 95 mL/min (70-130); Calcium 9.3 mg/dL (7.8-10.44); Carbon Dioxide 30 mmol/L (23-31); Chloride 100 mmol/L (98-107); Cholesterol 160 mg/dl (< 200 Desired); Estimated GFR 98; Glucose 145 mg/dL (80-115); HDL Cholesterol 32 mg/dL (>60 Neg Risk); LDL Cholesterol, Calculated 87 mg/dL; Potassium 3.8 mmol/L (3.5-5.1); Sodium 139 mmol/L (136-145); Triglycerides 204 mg/dL (Less than 150)
[2022-04-01] MEDS: Gabapentin 300 MG CAP PO SCH ×2 (08:46→16:32)
[2022-04-01] MEDS: Aspirin 81 mg Enteric Coated Tablet PO SCH (08:47)
[2022-04-01] MEDS: Apixaban 5 MG TAB PO SCH (08:48)
[2022-04-01] MEDS: Acetaminophen 325 MG TAB PO PRN (08:52)
[2022-04-01] MEDS: Benzonatate 100 MG CAP PO PRN (13:30)
[2022-04-01 15:10] LABS: SARS-CoV-2 NAA Rapid Test DETECTED (NotDetected)
[2022-04-01 16:13] VITALS: BP 124/60; TEMP 97.5
== END 2022-04-01 18:12 | disposition home or self-care (01) | DRG 66 ==
LOC: ERS 11:08 → ERHOLD 15:37 → NEURO 03-31 01:29 → OBSVTOIN 03-31 11:29
PROVIDERS: ADMIT Internal Medicine; ATTEND Internal Medicine
DX: I63.59 Cerebral infarction due to unspecified occlusion or stenosis of other cerebral artery (principal); Z20.822 Contact with and (suspected) exposure to COVID-19; R29.700 NIHSS score 0; M54.9 Dorsalgia, unspecified; Z85.41 Personal history of malignant neoplasm of cervix uteri; G89.29 Other chronic pain; R20.0 Anesthesia of skin; Z90.49 Acquired absence of other specified parts of digestive tract; Z79.01 Long term (current) use of anticoagulants; Z88.0 Allergy status to penicillin; Z88.5 Allergy status to narcotic agent; Z88.8 Allergy status to other drugs, medicaments and biological substances; Z79.899 Other long term (current) drug therapy; Z90.710 Acquired absence of both cervix and uterus; Z90.09 Acquired absence of other part of head and neck; Z86.718 Personal history of other venous thrombosis and embolism
CPT/HCPCS: 36415; 70450; 70496; 70498; 70551; 72141; 80048; 80053; 80061; 83036; 83690; 84439; 84443; 84484; 85025; 85652; 86140; 87389; 93005; 93306; Q9966; U0002; U0003; U0005